=== PATIENT | male | born 1980 | race Two or more races ===

== ENCOUNTER 2021-06-15 01:51 | Emergency (ER) | payer MEDICAID ==
[~2021-06-15] VITALS: Ht 172.7 cm; Wt 81.6 kg
[2021-06-15 01:52] VITALS: BP 123/87
[2021-06-15 06:52] LABS: Hematocrit 46.5 % (41.0-53.0); Hemoglobin 15.4 g/dL (13.5-17.5); Mean Corpuscular Hemoglobin 31.5 pg (28.0-32.0); Mean Corpuscular Volume 95.4 fL (80.0-100.0); Red Blood Cells 4.88 10^6/uL (4.5-5.90); Red Cell Distribution Width 14.3 % (11.8-14.3); White Blood Cell 4.5 10^3/uL (4.4-10.8)
[2021-06-15 06:59] LABS: Basophils % (manual) 0 (0.0-2.0); Blast Cells 0; Eosinophils % (manual) 0 (0-7); Metamyelocytes % 0; Myelocytes % 0; Promyelocytes % 0
[2021-06-15] MEDS ORDERED: SODIUM CHLORIDE 0.9% 1,000 ML IVB ONE (07:00)
[2021-06-15 07:12] LABS: Albumin 4.1 g/dL (3.4-5.0); Calcium 9.1 mg/dL (8.5-10.1); Potassium 3.9 mmol/L (3.5-5.1)
[2021-06-15 07:30] LABS: BUN/Creatinine Ratio 4.8; Total Protein 8.5 g/dL (6.4-8.2)
[2021-06-15 12:44] LABS: Band Neutrophils % (manual) 1; Lymphocytes % (manual) 52 (10.0-50.0); Monocytes % (manual) 8 (0-12); Reactive Lymphocytes 7
== END 2021-06-15 14:48 | disposition home or self-care (01) ==
LOC: ER 01:51
DX: R20.2 Paresthesia of skin (principal); F10.10 Alcohol abuse, uncomplicated; Y90.8 Blood alcohol level of 240 mg/100 ml or more
CPT/HCPCS: 36415; 70450; 71045; 80053; 80320; 83690; 83735; 83880; 84443; 84484; 85007; 85027; 93005